=== PATIENT | male | born 1985 | race Two or more races ===

== ENCOUNTER 2020-01-24 14:26 | Emergency (ER) | payer OTHER ==
[~2020-01-24] VITALS: Ht 170.2 cm; Wt 57.2 kg
[2020-01-24 14:28] VITALS: Ht 170.2 cm; Wt 57.2 kg
[2020-01-24 15:35] VITALS: BP 116/62
== END 2020-01-24 15:35 | disposition home or self-care (01) ==
LOC: ED 14:26
DX: R44.3 Hallucinations, unspecified (principal); F31.9 Bipolar disorder, unspecified

== ENCOUNTER 2020-10-04 00:56 | Emergency (ER) | payer OTHER ==
[~2020-10-04] VITALS: Ht 172.7 cm; Wt 81.6 kg
[2020-10-04 01:12] VITALS: Ht 172.7 cm; Wt 81.6 kg
[2020-10-04 01:35] VITALS: BP 113/73
== END 2020-10-04 01:35 ==
LOC: ED 00:56
DX: Z02.89 Encounter for other administrative examinations (principal)